=== PATIENT | female | born 1985 | race Caucasian/White ===

== ENCOUNTER 2019-02-25 08:55 | Emergency (ER) | payer BC ==
[2019-02-25] MEDS ORDERED: Diphtheria,Pertussis(Acell),Tetanus Vaccine 0.5 ML Syringe IM ONE (09:12)
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
[2019-02-25] MEDS ORDERED: Ketorolac 60 MG/2 ML SDV IM ONE (09:57)
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
== END 2019-02-25 11:11 | disposition home or self-care (01) ==
LOC: MW.ED 08:55
DX: S80.11XA Contusion of right lower leg, initial encounter (principal); S70.01XA Contusion of right hip, initial encounter; S80.212A Abrasion, left knee, initial encounter; Z23 Encounter for immunization; V86.56XA Driver of dirt bike or motor/cross bike injured in nontraffic accident, initial encounter
CPT/HCPCS: 73502; 73562; 73590; 81001; 81025; 90471; 90715; 96372; 99283; J1885

== ENCOUNTER 2022-07-07 13:25 | Emergency (ER) | payer OTHER, BC ==
[2022-07-07] MEDS ORDERED: cloNIDine 0.1 MG Tab PO ONE (13:50)
[2022-07-07 14:45] LABS: CARBON DIOXIDE,CO2 24.5 mmol/L (21.0-32.0); POTASSIUM,K 3.3 mmol/L (3.5-5.1)
== END 2022-07-07 15:34 | disposition home or self-care (01) ==
LOC: MW.ED 13:25
DX: I10 Essential (primary) hypertension (principal); Z91.199 Patient's noncompliance with other medical treatment and regimen due to unspecified reason; F17.210 Nicotine dependence, cigarettes, uncomplicated; Z88.8 Allergy status to other drugs, medicaments and biological substances
CPT/HCPCS: 36415; 71045; 80053; 81003; 81025; 84484; 85025; 93005; 99283; A9270; 93010